=== PATIENT | female | born 1965 | race African-American/Black ===

== ENCOUNTER 2018-11-06 10:45 | Emergency (ER) | payer BC, SELFPAY ==
--- NOTE | 2018-11-06 11:20 | RAD ---
XR Chest Pa Lat STANDARD History: Cough Comparison: None. Findings: Lungs are clear. No pneumothorax. No effusion. Cardiac silhouette and mediastinal contours are within normal limits. Impression: No acute intrathoracic abnormality.
== END 2018-11-06 11:39 | disposition home or self-care (01) ==
LOC: ERS 10:45
DX: J06.9 Acute upper respiratory infection, unspecified (principal); I10 Essential (primary) hypertension; Z79.899 Other long term (current) drug therapy; F17.210 Nicotine dependence, cigarettes, uncomplicated
CPT/HCPCS: 71046; 87804

== ENCOUNTER 2019-03-07 15:37 | Emergency (ER) | payer SELFPAY ==
--- NOTE | 2019-03-07 16:45 | RAD ---
EXAM: Chest PA and lateral: HISTORY: Cough COMPARISON: 2019 FINDINGS: Heart: Normal cardiac silhouette Aorta: Unremarkable Pulmonary vessels: Normal Costophrenic angles: Costophrenic angles are clear. Lungs: No consolidation or masses. Pneumothorax: No pneumothorax Osseous structures: No osseous abnormalities IMPRESSION: No acute cardiopulmonary process.
[2019-03-07] MEDS ORDERED: HYDROcodone/Acetaminophen 5/325 mg Tablet ONE (16:59)
== END 2019-03-07 17:15 | disposition home or self-care (01) ==
LOC: ERS 15:37
DX: K04.7 Periapical abscess without sinus (principal); J06.9 Acute upper respiratory infection, unspecified; I10 Essential (primary) hypertension; F41.9 Anxiety disorder, unspecified; F32.9 Major depressive disorder, single episode, unspecified; F17.210 Nicotine dependence, cigarettes, uncomplicated; Z79.899 Other long term (current) drug therapy
CPT/HCPCS: 71046

== ENCOUNTER 2019-04-09 10:03 | Emergency (ER) | payer SELFPAY ==
[2019-04-09] MEDS ORDERED: methylPREDNISolone Sod Succ/PF 125 MG/2 ML VIAL ONE (10:24)
[2019-04-09 10:28] LABS: Hemoglobin 13.6 g/dL (12.0-16.0); Mean Corpuscular HGB CONC 33.4 g/dL (32.0-36.0); Mean Corpuscular Hemoglobin 29.5 pg (27.0-31.0); Mean Corpuscular Volume 88.4 fL (78.0-98.0); Mean Platelet Volume 8.5 fL (7.4-10.4); Platelet Count 206 thou/uL (130-400); White Blood Cell (WBC) Count 8.5 thou/uL (4.8-10.8)
--- NOTE | 2019-04-09 10:32 | RAD ---
Chest AP view INDICATION: Cough and shortness of breath COMPARISON: None FINDINGS: Lungs:The lungs are clear Cardiac silhouette:The cardiomediastinal silhouette appears within normal limits. Pulmonary vasculature:Normal Pleural spaces:No pleural effusion or pneumothorax is demonstrated. Upper abdomen:No abnormality seen. Osseous structures: No acute osseous abnormality. Additional findings:None. IMPRESSION: No acute cardiopulmonary abnormality.
[2019-04-09 10:51] LABS: ALT (SGPT) 18 U/L (8-55); AST (SGOT) 18 U/L (5-34); Albumin 4.3 g/dL (3.5-5.0); Alkaline Phosphatase 106 U/L (40-110); Anion Gap 13 mmol/L (10-20); BUN (Urea Nitrogen) 11 mg/dL (9.8-20.1); Bilirubin, Total 0.5 mg/dL (0.2-1.2); CK (CPK) 154 U/L (29-168); Calc. Creatinine Clearance 0 mL/min (70-130); Calcium 9.3 mg/dL (7.8-10.44); Carbon Dioxide 25 mmol/L (22-29); Chloride 105 mmol/L (98-107); Estimated GFR-MDRD 82; Globulin 3.3 g/dL (2.4-3.5); Glucose 139 mg/dL (70-105); Lipase 33 U/L (8-78); Potassium 3.1 mmol/L (3.5-5.1); Protein, Total 7.6 g/dL (6.0-8.3); Sodium 140 mmol/L (136-145)
[2019-04-09] MEDS ORDERED: Magnesium 2 GM/50 ML BAG (IN WATER) ONE (11:01)
[2019-04-09 11:03] LABS: Eosinophils 3 % (0-10); Lymphocytes 17 % (21-51); MDiff Complete? YES; Monocytes 16 % (0-10); Neutrophil 60 % (42-75); Platelet Morphology Comment Appears Adequate; RBC Morphology Normal; Reactive Lymphocytes 4 % (0-10); Vacuoles SLIGHT
[2019-04-09 11:13] LABS: CKMB 4.5 ng/mL (0-6.6)
[2019-04-09] MEDS ORDERED: Aspirin Chewable 81 MG TAB ONE (11:20)
[2019-04-09 14:14] LABS: Troponin I 0.035 ng/mL (< 0.028)
--- NOTE | 2019-04-19 06:21 | PQF ---
[facility] POST DISCHARGE CLINICAL DOCUMENTATION IMPROVEMENT CLARIFICATION FORM l Todays Date: 04/15/2019 l Patients Name Poonam Pitts l l Admit Date 04/09/2019 l Disch Date 04/09/2019 Reading Teacher Name Terrell Argueta Email: [email or web address] Cell: [phone] To be completed by Reading Teacher: Present Clinical Indicators - Signs / Symptoms Results and Location in Medical Record [ ] Documentation of: [ ] [ ] Documentation of: [ ] [ ] Documentation of: [ ] [ ] Documentation of: [ ] [ ] Risks [ ] [ ] [ ] Treatment [x] Bronchitis Query for specificity of acute or chronic bronchitis [ ] [ ] To be completed by Physician: Calos Edward The documentation in this patients record requires clarification to ensure coding compliance and accuracy. Check the appropriate box and include in your discharge summary. [ ] [ ] [ ] [ ] Please check this box if this does not apply to this patient [ ] Unable to determine [ ] Other diagnosis: Review the following information and exercise your independent professional judgment in responding to the clarification. Based upon the clinical findings, risk factors, and treatment, please clarify if you are treating one of the above probable or suspected diagnoses. Physician Signature: Date Time FAUSTOD
== END 2019-04-09 14:47 | disposition home or self-care (01) ==
LOC: ERS 10:03
DX: J45.901 Unspecified asthma with (acute) exacerbation (principal); J40 Bronchitis, not specified as acute or chronic; I10 Essential (primary) hypertension; F41.9 Anxiety disorder, unspecified; F32.9 Major depressive disorder, single episode, unspecified; F17.210 Nicotine dependence, cigarettes, uncomplicated; Z79.899 Other long term (current) drug therapy
CPT/HCPCS: 36415; 71045; 80053; 82550; 82553; 83690; 84484; 85025; 93005; 94640; 96365; 96375; J2930; J3475; J7620

== ENCOUNTER 2019-06-17 16:20 | Emergency (ER) | payer SELFPAY ==
[2019-06-17] MEDS ORDERED: Dexamethasone 10 MG/ML VIAL ONE (18:00)
[2019-06-17] MEDS ORDERED: Lidocaine 1% PF 5 ML VIAL ONE (18:00)
[2019-06-17] MEDS ORDERED: Dexamethasone 4 mg/ml Vial ONE (18:01)
[2019-06-17] MEDS ORDERED: cefTRIAXone\\ROCEPHIN 1 GM VIAL ONE (18:04)
--- NOTE | 2019-06-17 19:17 | RAD ---
ONE VIEW CHEST: 06/17/19 HISTORY: Cough. Runny nose. COMPARISON: None. FINDINGS: Normal cardiac silhouette. The lungs and pleural space are clear. No pneumothorax or osseous abnormal ities. IMPRESSION: No acute cardiopulmonary process. POS: PPP
== END 2019-06-17 19:00 | disposition home or self-care (01) ==
LOC: ERS 16:20
DX: J11.1 Influenza due to unidentified influenza virus with other respiratory manifestations (principal); I10 Essential (primary) hypertension; J45.909 Unspecified asthma, uncomplicated; F41.9 Anxiety disorder, unspecified; F32.9 Major depressive disorder, single episode, unspecified; F17.210 Nicotine dependence, cigarettes, uncomplicated; Z79.51 Long term (current) use of inhaled steroids; Z79.899 Other long term (current) drug therapy
CPT/HCPCS: 71045; 87804; 96372; J0696; J1100; J2001

== ENCOUNTER 2020-04-17 11:10 | Outpatient (CLI) | payer OTHER ==
--- NOTE | 2020-04-17 12:56 | RAD ---
LEFT SHOULDER 2 VIEWS: HISTORY: Disability exam. FINDINGS: Minimal arthrosis of the AC joint. The glenohumeral joint space is unremarkable. IMPRESSION: Minimal arthrosis of the acromioclavicular joint. POS: JOSE
== END 2020-04-17 11:11 | disposition home or self-care (01) ==
LOC: BICRAD 11:10
PROVIDERS: ATTEND Internal Medicine
DX: Z02.71 Encounter for disability determination (principal); M19.012 Primary osteoarthritis, left shoulder

== ENCOUNTER 2023-03-27 11:11 | Outpatient (CLI) | payer OTHER | END 2023-03-27 11:12 | disposition home or self-care (01) | LOC: BICRAD 11:11 | PROVIDERS: ATTEND Internal Medicine | DX: Z02.71 Encounter for disability determination (principal); M47.816 Spondylosis without myelopathy or radiculopathy, lumbar region; M19.019 Primary osteoarthritis, unspecified shoulder | CPT/HCPCS: 71046; 72100 ==

== ENCOUNTER 2023-04-16 12:09 | Emergency (ER) | payer SELFPAY ==
[2023-04-16 14:59] LABS: SARS-CoV-2 NAA Rapid Test Not Detected (NotDetected)
== END 2023-04-16 14:47 | disposition home or self-care (01) ==
LOC: ERS 12:09
DX: R05.9 Cough, unspecified (principal); J31.0 Chronic rhinitis; I10 Essential (primary) hypertension; J45.909 Unspecified asthma, uncomplicated; F17.210 Nicotine dependence, cigarettes, uncomplicated; Z20.822 Contact with and (suspected) exposure to COVID-19
CPT/HCPCS: 87804; 99283; U0002